=== PATIENT | female | born 1995 | race African-American/Black ===

== ENCOUNTER 2017-03-30 21:22 | Emergency (ER) | payer MEDICAID ==
[~2017-03-30] VITALS: Ht 152.4 cm; Wt 95.0 kg
[2017-03-31] MEDS ORDERED: DICYCLOMINE 10 MG/5 ML ORAL SYR PO STA (01:48)
[2017-03-31] MEDS ORDERED: MAGNESIUM/ALUMINUM HYDROXIDE/SIMETHICONE 30ML UDC PO STA (01:48)
[2017-03-31] MEDS ORDERED: SODIUM CHLORIDE 0.9% 1,000 ML IV ONE ×2 (01:48→06:30)
[2017-03-31] MEDS ORDERED: ONDANSETRON HCL 4MG/2ML VIAL IV ONE ×2 (02:00→07:30)
[2017-03-31 02:31] LABS: HEMATOCRIT. 39.6 % (36.0-48.0); HEMOGLOBIN. 13.6 g/dL (12.0-16.0); MEAN CORPUSCULAR HEMOGLOBIN 28.9 pg (28.0-32.0); MEAN CORPUSCULAR HGB CONC 34.3 g/dL (31.0-37.0); MEAN CORPUSCULAR VOLUME 84.5 fL (81.0-99.0); MEAN PLATELET VOLUME 8.5 fl (7.4-10.4); PLATELET 222 x1000/uL (130-400); RED BLOOD CELL COUNT 4.68 mill/uL (4.2-5.4); RED CELL DISTRIBUTION WIDTH 12.8 % (11.6-14.6); WHITE BLOOD COUNT 27.1 x1000/uL (4.5-11.0)
[2017-03-31 02:34] LABS: CHLORIDE 101 mEq/L (98-107); INDEX HEMOLYSI 1 (1-3); INDEX ICTERIC 1 (1-4); INDEX LIPEMIC 1 (1-3)
[2017-03-31 02:37] LABS: DIFFERENTIAL COMMENT 1
[2017-03-31 02:43] LABS: ALANINE AMINOTRANSFERASE 20 IU/L (13-61); ALBUMIN 3.3 g/dL (3.4-5.0); ANION GAP 14; CALCIUM 8.8 mg/dL (8.5-10.1); CARBON DIOXIDE 28 mEq/L (21-32); LIPASE 56 IU/L (73-393); UREA NITROGEN BLOOD 8 mg/dL (7-21); eGFR > 60 mL/min (>60)
[2017-03-31 03:02] LABS: PLATELET ESTIMATE NORMAL
[2017-03-31 04:10] LABS: CLARITY URINE CLEAR (CLEAR); COLOR URINE DARK YELLOW (YELLOW); GLUCOSE URINE NEGATIVE (NEGATIVE); KETONES URINE TRACE (NEGATIVE); LEUKOCYTE ESTERASE URINE 1+ (NEGATIVE); NITRITE URINE NEGATIVE (NEGATIVE); OCCULT BLOOD URINE NEGATIVE (NEGATIVE); PH URINE 5.5 (4.5-8.0); PROTEIN URINE NEGATIVE (NEGATIVE); SPECIFIC GRAVITY URINE 1.023 (1.005-1.030); UROBILINOGEN URINE 0.2 E.U./dL (0.2-1.0)
[2017-03-31 05:34] LABS: BACTERIA URINE TRACE; RBC URINE 0-2 /hpf (0-2); SQUAMOUS EPITHELIAL CELL URINE FEW /lpf (RARE/1+)
[2017-03-31] MEDS ORDERED: CEFTRIAXONE 1 G PREMIX 50 ML IV ONE (06:30)
[2017-03-31 09:09] VITALS: BP 129/67
[2017-03-31] MEDS ORDERED: SODIUM CHLORIDE 0.9% 10ML VIAL ONE (10:28)
[2017-03-31] MEDS ORDERED: IOHEXOL-300 100 ML BOTTLE ONE (10:28)
== END 2017-03-31 09:16 | disposition home or self-care (01) ==
LOC: ER 21:22
DX: N12 Tubulo-interstitial nephritis, not specified as acute or chronic (principal); R10.84 Generalized abdominal pain; F12.10 Cannabis abuse, uncomplicated
CPT/HCPCS: 36415; 74177; 80053; 81001; 81025; 83690; 85025; 96361; 96365; 96366; 96375; 96376; 99285; A4216; J0696; J2405; J7030; Q9967; Z7610

== ENCOUNTER 2017-11-29 17:12 | Emergency (ER) | payer MEDICAID ==
[~2017-11-29] VITALS: Ht 162.6 cm; Wt 113.0 kg
[2017-11-29] MEDS ORDERED: ACETAMINOPHEN 500MG TABLET PO ONE (20:15)
[2017-11-29 20:30] VITALS: BP 115/72
== END 2017-11-29 23:25 | disposition home or self-care (01) ==
LOC: ER 17:51
DX: O26.892 Other specified pregnancy related conditions, second trimester (principal); M25.531 Pain in right wrist; R22.31 Localized swelling, mass and lump, right upper limb; O99.322 Drug use complicating pregnancy, second trimester; F12.90 Cannabis use, unspecified, uncomplicated; O99.332 Smoking (tobacco) complicating pregnancy, second trimester; Z3A.26 26 weeks gestation of pregnancy
CPT/HCPCS: 29125; 73110; 99284

== ENCOUNTER 2021-11-21 20:49 | Observation (INO) | payer MEDICAID ==
[~2021-11-21] VITALS: Ht 165.1 cm; Wt 112.9 kg
[2021-11-21 22:03] LABS: BASOPHILS % 0.2 % (0.0-2.0); EOSINOPHILS % 1.3 % (0.0-5.0); HEMATOCRIT. 35.3 % (36.0-48.0); LYMPHOCYTES % 16.3 % (20.0-50.0); MEAN CORPUSCULAR HEMOGLOBIN 28.5 pg (28.0-32.0); MEAN CORPUSCULAR VOLUME 83.7 fL (81.0-99.0); MEAN PLATELET VOLUME 8.3 fl (7.4-10.4); MONOCYTES % 7.6 % (2.0-8.0); NEUTROPHILS % 74.6 % (40.0-76.0); PLATELET 239 x1000/uL (130-400); RED BLOOD CELL COUNT 4.21 mill/uL (4.2-5.4); RED CELL DISTRIBUTION WIDTH 14.6 % (11.6-14.6)
== END 2021-11-21 23:35 | disposition home or self-care (01) ==
LOC: 8 EST LDRP 20:49
PROVIDERS: ADMIT Obstetrics & Gynecology; ATTEND Obstetrics & Gynecology
DX: O26.853 Spotting complicating pregnancy, third trimester (principal); O62.9 Abnormality of forces of labor, unspecified; Z3A.34 34 weeks gestation of pregnancy
CPT/HCPCS: 36415; 59025; 76805; 76818; 85025; G0378; 99281; G0379

== ENCOUNTER 2023-12-06 13:44 | Emergency (ER) | payer MEDICAID ==
[~2023-12-06] VITALS: Ht 167.6 cm; Wt 101.0 kg
[2023-12-06 13:52] VITALS: O2SAT 99
[2023-12-06] MEDS ORDERED: FAMOTIDINE 20MG/2ML VIAL IV STA (14:07)
[2023-12-06] MEDS ORDERED: DIPHENHYDRAMINE 50MG/ML VIAL IV ONE (14:15)
[2023-12-06] MEDS ORDERED: SODIUM CHLORIDE 0.9% 1,000 ML IV ONE (14:15)
[2023-12-06] MEDS ORDERED: METOCLOPRAMIDE HCL 10MG/2ML VIAL IV ONE (14:15)
[2023-12-06 14:33] LABS: HEMATOCRIT. 36.7 % (36.0-48.0); MEAN CORPUSCULAR HEMOGLOBIN 31.8 pg (28.0-32.0); MEAN CORPUSCULAR HGB CONC 35.5 g/dL (31.0-37.0); MEAN CORPUSCULAR VOLUME 89.4 fL (81.0-99.0); MEAN PLATELET VOLUME 9.1 fl (7.4-10.4); PLATELET 209 x1000/uL (130-400); RED CELL DISTRIBUTION WIDTH 13.2 % (11.6-14.6); WHITE BLOOD COUNT 9.4 x1000/uL (4.5-11.0)
[2023-12-06 14:41] LABS: DIFFERENTIAL COMMENT 1; INR 0.9
[2023-12-06 14:49] LABS: ALANINE AMINOTRANSFERASE 17 IU/L (10-49); ALBUMIN 3.6 g/dL (3.2-4.8); ASPARTATE AMINOTRANSFERASE 18 IU/L (<34); BILIRUBIN TOTAL 0.5 mg/dL (0.1-1.0); CALCIUM 8.3 mg/dL (8.7-10.4); CARBON DIOXIDE 21 mEq/L (21-32); CHLORIDE 105 mEq/L (98-107); CREATININE 0.5 mg/dL (0.6-1.0); GLUCOSE 113 mg/dL (70-105); POTASSIUM 3.5 mEq/L (3.5-5.1); PROTEIN TOTAL 6.6 g/dL (6.0-8.3); SODIUM 135 mEq/L (136-145); UREA NITROGEN BLOOD < 5 mg/dL (9-23)
[2023-12-06 15:10] LABS: PLATELET ESTIMATE NORMAL
[2023-12-06 15:39] LABS: CLARITY URINE CLEAR (CLEAR); COLOR URINE YELLOW (YELLOW); GLUCOSE URINE NEGATIVE (NEGATIVE); KETONES URINE NEGATIVE (NEGATIVE); LEUKOCYTE ESTERASE URINE 1+ (NEGATIVE); NITRITE URINE NEGATIVE (NEGATIVE); OCCULT BLOOD URINE NEGATIVE (NEGATIVE); PH URINE 7.5 (4.5-8.0); PROTEIN URINE TRACE (NEGATIVE); SPECIFIC GRAVITY URINE 1.018 (1.005-1.030)
[2023-12-06 15:53] LABS: *AMPHETAMINES SCREEN URINE NEGATIVE (NEGATIVE); *BARBITURATES SCREEN URINE NEGATIVE (NEGATIVE); *BENZODIAZEPINES SCREEN URINE NEGATIVE (NEGATIVE); *COCAINE SCREEN URINE NEGATIVE (NEGATIVE); CANNABINOID URINE SCREEN PRESUMPTIVE POSITIVE (NEGATIVE); ECSTASY MDMA SCREEN URINE NEGATIVE (NEGATIVE); METHADONE URINE SCREEN Neg (NEGATIVE); OPIATES URINE SCREEN NEGATIVE (NEGATIVE); PHENCYCLIDINE URINE SCREEN NEGATIVE (NEGATIVE)
[2023-12-06 15:58] LABS: BACTERIA URINE 2+; RBC URINE 0-2 /hpf (0-2); SQUAMOUS EPITHELIAL CELL URINE 1+ /lpf (RARE/1+)
[2023-12-06] MEDS ORDERED: CEPHALEXIN 250MG CAPSULE PO ONE (16:00)
[2023-12-06] MEDS ORDERED: CEPH500C2 MT (16:03)
[2023-12-06 16:15] VITALS: BP 132/71; PULSE 90; RESP 16; TEMP 98
== END 2023-12-06 16:18 | disposition home or self-care (01) ==
LOC: ER 13:44
DX: O23.42 Unspecified infection of urinary tract in pregnancy, second trimester (principal); O26.92 Pregnancy related conditions, unspecified, second trimester; N39.0 Urinary tract infection, site not specified; I10 Essential (primary) hypertension; F12.90 Cannabis use, unspecified, uncomplicated; Z3A.24 24 weeks gestation of pregnancy
CPT/HCPCS: 80053; 80305; 81003; 83690; 85025; 85610; 86850; 86900; 86901; 36415; 76805; 96361; 96374; 96375; 99285; J1200; J3490; J2765; J7030; Z7610